=== PATIENT | female | born 1995 | race Caucasian/White ===

== ENCOUNTER 2017-08-28 23:35 | Emergency (ER) | payer BC ==
[~2017-08-28] VITALS: Ht 170.2 cm; Wt 68.2 kg
[2017-08-28 23:45] VITALS: TEMP 98.3
[2017-08-29 00:14] LABS: COLLECTION METHOD CLEAN CATCH
[2017-08-29 00:16] LABS: BASO # 0.1 (0.0-0.2); EOS # 0.1 (0.0-0.7); EOS % 1.4 % (0-4.0); GRAN # 4.4 (1.4-6.5); GRAN % 58.1 % (42.2-75.2); HEMATOCRIT 36.6 % (37.0-47.0); HEMOGLOBIN 12.5 g/dl (12.5-16.0); LYMPH # 2.5 (1.2-3.4); LYMPH % 32.7 % (20.0-51.0); MEAN CELL VOLUME 92 fl (80.0-100.0); MEAN CORPUSCULAR HEMOGLOBIN 32 pg (27.0-31.0); MEAN CORPUSCULAR HGB CONC 34 g/dl (33.0-37.0); MEAN PLATELET VOLUME 9.1 fl (7.4-10.4); MONO # 0.5 (0.1-0.6); MONO % 6.7 % (1.7-9.3); PLATELET COUNT 262 K/mm3 (130-400); RED BLOOD COUNT 3.96 M/mm3 (4.10-5.30); REDCELL DISTRIBUTION WIDTH-CV 11.8 % (11.5-14.5)
[2017-08-29 00:22] LABS: PH 8 (5-8); URINE APPEARANCE Hazy; URINE BACTERIA None Seen /hpf; URINE BILIRUBIN Negative (NEGATIVE); URINE BLOOD 2+ (NEGATIVE); URINE COLOR Yellow; URINE GLUCOSE Negative (NEGATIVE); URINE KETONE Negative (NEGATIVE); URINE LEUKOCYTE ESTERASE 2+ (NEGATIVE); URINE NITRATE Negative (NEGATIVE); URINE PROTEIN(semi-quant) 2+ (NEGATIVE); URINE RBC 20-50 /hpf; URINE UROBILINOGEN Negative (NEGATIVE)
[2017-08-29 00:31] LABS: ALBUMIN 4.4 gm/dL (3.5-5.0); CARBON DIOXIDE 27 mmol/L (22-30); CHLORIDE 103 mmol/L (98-107); POTASSIUM 3.9 mmol/L (3.4-5.0); SODIUM 139 mmol/L (137-145); TOTAL PROTEIN 7.5 gm/dL (6.4-8.2)
[2017-08-29 00:47] LABS: ALANINE AMINOTRANSFERASE 28 U/L (9-52); ALKALINE PHOSPHATASE 35 U/L (50-136); ANION GAP 9 mmol/L (7-16); AST,SGOT 29 U/L (15-37); BILIRUBIN,TOTAL 0.4 mg/dL (0.0-1.0); BLOOD UREA NITROGEN 14 mg/dL (7-17); CALCIUM 9.4 mg/dL (8.4-10.2); CREATININE, serum 0.68 mg/dL (0.52-1.25); GLUCOSE 89 mg/dL (74-106)
[2017-08-29 00:50] LABS: C-REACTIVE PROTEIN < 0.5 mg/dL (0.0-0.9)
[2017-08-29] MEDS ORDERED: NORCO 325 MG-51 TAB PO (02:36)
[2017-08-29] MEDS ORDERED: OMNICEF 300MG300 MG PO (02:36)
[2017-08-29 02:53] VITALS: BP 110/75; PULSE 56
== END 2017-08-29 02:53 | disposition home or self-care (01) ==
LOC: COL.ER 23:35
PROVIDERS: Nurse Practitioner
DX: N12 Tubulo-interstitial nephritis, not specified as acute or chronic (principal); Z98.890 Other specified postprocedural states
CPT/HCPCS: J0696; J1885; J2405; J7030; Q9967

== ENCOUNTER → 2017-09-05 | Outpatient (CLI) | payer BC ==
[~2017-09-05] MED LIST: NORCO 325 MG-51 TAB PO; OMNICEF 300MG300 MG PO
[2017-09-05 14:15] LABS: CHOLESTEROL RISK RATIO 2.5
[2017-09-05 14:46] LABS: TSH w REFLEX 1.51 uIU/mL (0.465-4.680)
== END ==
LOC: COL.LAB 10:28
PROVIDERS: Family Medicine
DX: Z13.220 Encounter for screening for lipoid disorders (principal); Z13.29 Encounter for screening for other suspected endocrine disorder